=== PATIENT | female | born 1965 | race Two or more races ===

== ENCOUNTER 2024-08-20 20:27 | Emergency (ER) | payer MEDICAID, OTHER ==
[~2024-08-20] VITALS: Ht 160 cm; Wt 68.0 kg
--- NOTE | 2024-08-20 21:00 | DVH ---
CHEST RADIOGRAPH Indication: cp Technique: Single frontal view of the chest was obtained COMPARISON: None FINDINGS: Lines and Tubes: None Lungs: Clear Pleura: No effusion. No pneumothorax. Cardiomediastinal contours: Unremarkable IMPRESSION: No acute abnormality demonstrated.
[2024-08-20 21:19] LABS: Basophils # (auto) 0 10 ^3/uL (0-0.2); Basophils % (auto) 0.4 % (0.0-2.0); Eosinophils # (auto) 0.3 10 ^3/uL (0-0.8); Eosinophils % (auto) 3.1 % (0.0-7.0); Hematocrit 43.5 % (36.0-46.0); Hemoglobin 14.7 g/dL (12.2-16.2); Lymphocytes # (auto) 3.5 10 ^3/uL (0.4-5.4); Lymphocytes % (auto) 43.7 % (10.0-50.0); Mean Corpuscular Hemoglobin 30.9 pg (28.0-32.0); Mean Corpuscular Hgb Conc. 33.8 g/dL (32.0-36.0); Mean Corpuscular Volume 91.3 fL (80.0-100.0); Monocytes # (auto) 0.6 10 ^3/uL (0-1.3); Monocytes % (auto) 7.1 % (0.0-12.0); Neutrophils # (auto) 3.7 10 ^3/uL (1.6-8.6); Neutrophils % (auto) 45.7 % (37.0-80.0); Platelet Count (auto) 253 10^3/uL (140-450); Red Blood Cells 4.77 10^6/uL (4.0-5.20); Red Cell Distribution Width 13.2 % (11.8-14.3); White Blood Cell 8.1 10^3/uL (4.4-10.8)
--- NOTE | 2024-08-20 21:21 | ED.PDOC ---
History of Present Illness HPI Comments 59-year-old female who came to ER via EMS for nausea and vomiting. Patient just finishing dinner earlier when she started experiencing weakness, dizziness nauseated, vomiting. Blood pressure taken at home 66/50 mm Hg by family members. Upon arrival of paramedics, systolic blood pressure 120 was taken, with a blood sugar of 134 Chief Complaint: Nausea/Vomiting Time Seen by MD: 21:20 Reviewed Notes: Family Reunification Specialist Notes Allergies: Coded Allergies: No Known Drug Allergy (Verified Allergy, Unknown, 08/20/24) Information Source: Patient, Emergency Med Personnel Mode of Arrival: Ambulatory Severity: Moderate Timing: Hours Duration: Since onset Review of Systems REVIEW OF SYSTEMS: No fever, no chills, or fatigue HEENT: No sore throat, no earache, no congestion, no neck pain. Cardiac: No chest pain. No palpitations. Lungs: No shortness of breath, no cough. GI: (+) nausea, (+) vomiting, no diarrhea, no constipation, no abdominal pain : No dysuria, frequency, or urgency. No hematuria. Musculoskeletal: No joint pain , no joint swelling, no extremity edema. Skin: No rash, no itching. Neuro: No headache, no dizziness, (+) weakness Vital Signs Vital Signs Date Time Temp Pulse Resp B/P (MAP) Pulse Ox O2 Delivery O2 Flow Rate FiO2 08/21/24 00:52 62 20 96 Room Air 08/21/24 00:52 98.0 128/65 (86) 98.0 08/20/24 21:40 0 21 Physical Exam General: Awake, alert and oriented. No acute distress. Skin: Skin in warm, dry and intact. Appropriate color for ethnicity. Nailbeds pink with no cyanosis. HEENT: The head is normocephalic and atraumatic. Conjunctivae are clear without exudates or hemorrhage. Sclera is non-icteric. EOM are intact. WILY No signs of nystagmus. Eyelids are normal in appearance without swelling or lesions. Oral mucosa is pink and moist Neck: The neck is supple with normal range of motion. No JVD. Cardiac: Heart rate and rhythm are normal. No murmurs, gallops, or rubs are auscultated. Respiratory: No signs of respiratory distress. Lung sounds are clear in all lobes bilaterally without rales, ronchi, or wheezes. Abdominal: Abdomen is soft, non-tender without distention. Bowel sounds are present and normoactive in all four quadrants. Extremities: Left shoulder with decreased range of motion, no obvious deformity. Left trapezius tenderness to palpation. Neurological: The patient is awake, alert and oriented to person, place, and time with normal speech. Speech is clear. There is no facial asymmetry. Psychiatric: Appropriate mood and affect. Good judgement and insight. No visual or auditory hallucinations. Past Medical History PAST MEDICAL HISTORY: High Lipids Surgical History: Denies all surgeries COSMETIC SALES History: Denies all COSMETIC SALES Hx Family History Family History: Reviewed,noncontributory to illness Social History Smoker: Non-Smoker Alcohol: Denies ETOH Use Drugs: Denies Drug Use Lives In: Home Was a procedure done? Was a procedure done?: No EKG EKG : Pulse Rate (adult): 61 Cardiac Rhythm: NSR Differential Dx Considerations may include: Anemia, electrolyte imbalance, dehydration, anxiety, syncope, hypotension X-Ray, Labs, Meds, VS Vital Signs Date Time Temp Pulse Resp B/P (MAP) Pulse Ox O2 Delivery O2 Flow Rate FiO2 08/21/24 00:52 62 20 96 Room Air 08/21/24 00:52 98.0 62 20 128/65 (86) 96 98.0 08/20/24 22:24 72 130/66 64 126/61 08/20/24 21:40 97.7 64 16 137/67 (90) 96 97.7 08/20/24 21:40 64 16 96 Room Air* 0 21 08/20/24 21:21 61 08/20/24 20:29 61 08/20/24 20:27 97.4 62 16 107/61 (76) 100 Lab Test 08/20/24 22:03 08/20/24 21:06 Range/Units Troponin I High Sensitivity < 3 L < 3 L </=34 ng/L White Blood Count 8.1 4.4-10.8 10^3/uL Red Blood Count 4.77 4.0-5.20 10^6/uL Hemoglobin 14.7 12.2-16.2 g/dL Hematocrit 43.5 36.0-46.0 % Mean Corpuscular Volume 91.3 80.0-100.0 fL Mean Corpuscular Hemoglobin 30.9 28.0-32.0 pg Mean Corpuscular Hemoglobin Concent 33.8 32.0-36.0 g/dL Red Cell Distribution Width 13.2 11.8-14.3 % Platelet Count 253 140-450 10^3/uL Mean Platelet Volume 8.5 6.9-10.8 fL Neutrophils (%) (Auto) 45.7 37.0-80.0 % Lymphocytes (%) (Auto) 43.7 10.0-50.0 % Monocytes (%) (Auto) 7.1 0.0-12.0 % Eosinophils (%) (Auto) 3.1 0.0-7.0 % Basophils (%) (Auto) 0.4 0.0-2.0 % Neutrophils # (Auto) 3.7 1.6-8.6 10 ^3/uL Lymphocytes # (Auto) 3.5 0.4-5.4 10 ^3/uL Monocytes # (Auto) 0.6 0-1.3 10 ^3/uL Eosinophils # (Auto) 0.3 0-0.8 10 ^3/uL Basophils # (Auto) 0 0-0.2 10 ^3/uL Nucleated Red Blood Cells 0.0 % Sodium Level 140 136-145 mmol/L Potassium Level 4.1 3.5-5.1 mmol/L Chloride Level 106 98-107 mmol/L Carbon Dioxide Level 24 20-31 mmol/L Anion Gap 10 5-15 Blood Urea Nitrogen 10 9-23 mg/dL Creatinine 0.68 0.550-1.02 mg/dL Glomerular Filtration Rate Calc 102 >90 mL/min BUN/Creatinine Ratio 14.7 10.0-20.0 Serum Glucose 97 74-106 mg/dL Calcium Level 10.0 8.7-10.4 mg/dL Total Bilirubin 0.3 0.2-1.0 mg/dL Aspartate Amino Transferase (AST) 16 13-40 U/L Alanine Aminotransferase (ALT) 22 7-40 U/L Alkaline Phosphatase 82 46-116 U/L B-Type Natriuretic Peptide 17.92 0-100 pg/mL Total Protein 7.1 5.7-8.2 g/dL Albumin 4.6 3.2-4.8 g/dL Current Medications Medications (Trade) Dose Ordered Sig/Bart Route Start Time Stop Time Status Last Admin Sodium Chloride 1,000 ml @ 1,000 mls/hr Q1H ONCE IV 08/20/24 21:00 08/20/24 21:59 DC 08/20/24 21:47 Ondansetron HCl (Zofran) 4 mg ONCE ONCE IV 08/20/24 21:00 08/20/24 21:01 DC 08/20/24 21:48 Ketorolac Tromethamine (Toradol Injection) 30 mg ONCE ONCE IV 08/20/24 21:30 08/20/24 22:06 DC 08/20/24 22:13 Time of 1ST Reevaluation: 21:13 Reevaluation 1ST: Unchanged Patient Education/Counseling: Diagnosis, Treatment Family Education/Counseling: No Family Present Departure 1 Departure Time of Disposition: 23:36 Impression: Primary Impression: Dizziness Additional Impression: Shoulder pain Disposition: 01 HOME / SELF CARE / HOMELESS Condition: Stable Referrals: MEGAN CARMONA MD Call for an appointment to be seen for shoulder pain. Additional Instructions: INSTRUCCIONES DE DERRELL DE Urgencias Instrucciones: Lachelle atentamente todas las instrucciones proporcionadas en kori paquete. Aunque le hayan dado el derrell del Departamento de Emergencias, esto no significa que tenga un "certificado de buena celi". Hoy no se lee realizado ningn diagnstico definitivo para amrik sntomas. Es posible que ests en proceso de desarrollar scott enfermedad grave. Es por eso que debe regresar al servicio de urgencias sin falta si presenta algn sntoma nuevo o que empeora (especialmente si amrik sntomas incluyen dolor en el pecho, dificultad para respirar, dolor abdominal, fiebre, dolor de desiree, confusin, dificultad para ck o caminar). Tambin es muy importante que consulte a un mdico de atencin primaria dentro de los prximos 3 a 5 robles para realizar un seguimiento. Si no puede conseguir scott marii, regrese al servicio de urgencias para scott nueva evaluacin. Comments 59-year-old female presents to the emergency department with dizziness EKG negative for signs of ischemia. High sensitivity troponin negative. CXR shows no acute process. Presentation not suggestive of acute coronary syndrome, pulmonary embolism or aortic dissection. Orthostatic vital signs negative. There is no neuro deficit on her exam. Patient improved at time of discharge. No hypoxia, respiratory distress or dyspnea at discharge. Patient able to ambulate without difficulty. Patient is felt safe for discharge home. She is advised to follow up with her primary care provider and orthopedics for further evaluation of her shoulder pain. Patient well-appearing, nontoxic. Advised prompt follow-up with PCP, return to the ED with any new, worsening or concerning symptoms. Extensive evaluation was performed in attempt to identify or rule out: (See di fferential diagnosis section) The following tests were ordered, and results were reviewed by me: (See diagnostic results section) The following test were independently interpreted by me: EKG I reviewed and agreed with the following test results read by other providers: Chest x-ray, shoulder x-ray I reviewed the following notes from the pt's past medical encounters: NA Additional information was gathered from interviewing the following independent historians: EMS personnel Discussion of management or test interpretation with external physician/other qualified health care management associate: N/A Decision regarding hospitalization or escalation of hospital level of care: Risks and benefits of admission for further treatment of patient's condition was considered however due to patient's stable condition patient will be discharged to follow up closely or return to care for worsening of condition or inability to follow up. Critical Care Note Critical Care Time?: No Stability Stability form required: No Heart Score Heart Score: Heart Score Response (Comments) Value History Slightly Suspicious 0 EKG Normal 0 Age 45-64 1 Risk Factors 1 or 2 risk factors 1 Troponin Normal limit 0 Total 2 I personally scribed for KAYLEE HANCOCK MD ([email or web address]) on 08/20/24 at 21:21. Electronically submitted by Wang Griffith ([email or web address]). KAYLEE HANCOCK MD Aug 20, 2024 21:21
[2024-08-20 21:40] VITALS: PULSE 64; RESP 16; O2SAT 96
[2024-08-20 21:42] LABS: Alanine Aminotransferase 22 U/L (7-40); Albumin 4.6 g/dL (3.2-4.8); Alkaline Phosphatase 82 U/L (46-116); Anion Gap 10 (5-15); Aspartate Aminotransferase 16 U/L (13-40); BUN/Creatinine Ratio 14.7 (10.0-20.0); Blood Urea Nitrogen 10 mg/dL (9-23); Carbon Dioxide 24 mmol/L (20-31); Chloride 106 mmol/L (98-107); Glucose 97 mg/dL (74-106); Potassium 4.1 mmol/L (3.5-5.1); Sodium 140 mmol/L (136-145); Total Protein 7.1 g/dL (5.7-8.2)
[2024-08-20 21:43] LABS: Bilirubin, Total 0.3 mg/dL (0.2-1.0)
[2024-08-20] MEDS: SODIUM CHLORIDE 0.9% 1,000 ML IV ONE (21:47)
[2024-08-20] MEDS: ONDANSETRON HCL 4 MG/2 ML VIAL IV ONE (21:48)
[2024-08-20] MEDS: KETOROLAC TROMETH 30 MG/ML 1ML VIAL IV ONE (22:13)
--- NOTE | 2024-08-20 22:27 | DVH ---
CLINICAL INDICATION: Pain/decreased ROM TECHNIQUE: XY L SHOULDER 2+ VIEW XRAY Comparison: None FINDINGS: IMPRESSION: No osseous or joint abnormality with no fracture or dislocation.
[2024-08-21 00:52] VITALS: BP 128/65; PULSE 62; RESP 20; TEMP 98; O2SAT 96
== END 2024-08-21 00:54 | disposition home or self-care (01) ==
LOC: ER 20:27 → EDBD 20:27 → ER 08-21 00:54
DX: M25.512 Pain in left shoulder (principal); R42 Dizziness and giddiness; R11.2 Nausea with vomiting, unspecified; Z79.899 Other long term (current) drug therapy
CPT/HCPCS: 36415; 71045; 73030; 80053; 83880; 84484; 85025; 96361; 96374; 96375; 99285; J1885; J2405; J7030